=== PATIENT | female | born 1995 | race Hispanic/Latino ===

== ENCOUNTER 2020-04-13 01:12 | Emergency (ER) | payer OTHER, SELFPAY ==
[2020-04-13 01:11] VITALS: BP 136/90; PULSE 88; RESP 24; TEMP 36.3; O2SAT 100
[2020-04-13 01:35] VITALS: RESP 18
--- NOTE | 2020-04-13 01:38 | PC.NURSE ---
pt brought in by ems,was found at [place] [facility], pt states she has had etoh tonight and would not say amount or alcohol consumed. pt states she had to go to bathroom and was escorted by luz sanchez and RN. Luz went into restroom with pt and closed door. pt then came out of restroom and proceeded to go towards nurses station,pt then threw herself against wall. pt was then asked to turn around ang go towards room, pt the reached up and grabbed RN's arm and dug her fingernails into arm.leaving scratch mitchell and nail imprints. pt then stated she knew Rn and his and that they all knew they were assholes . pts boyfriend showed up at this time and pt started crying.
--- NOTE | 2020-04-13 01:52 | ED.GENADULT ---
HPI - General Adult General Chief complaint: Alcohol Stated complaint: etoh Time Seen by Provider: 04/13/20 01:17 History of Present Illness HPI narrative: Patient 24-year-old female who presents emerged department with chief complaint of alcohol intoxication. Patient reports that she was drinking tonight and ended up at the [place] [employer]. Patient reports that EMS was called after she had been nauseated patient was transported to our facility. The patient denies suicidal or homicidal ideation denies any injury is able to ambulate with an unsteady gait but is protecting her airway patient's boyfriend has arrived at the hospital and is able to take custody of her the patient request to go home with her boyfriend and feels comfortable going home with him. Related Data Home Medications Medication Instructions Recorded Confirmed levonorgestrel 1 device I-UTERINE ONCE 10/03/19 10/09/19 Allergies Allergy/AdvReac Type Severity Reaction Status Date / Time Penicillins Allergy Mild Rash Verified 10/03/19 15:37 Review of Systems Review of Systems: Narrative: A 10 system review of systems was completed on the patient and is negative except for what is stated in the HPI. Nursing and ancillary documentation was reviewed. [facility] [place] Social History Social History Smoking status: Never smoker Second hand tobacco smoke exposure: No Alcohol intake: current Drinks per week: 3 Substance use: never Comments Patient denies significant past medical history Social history the patient works at [employer] and denies illicit drug use reports to occasional alcohol use Exam Narrative: Exam Narrative: GENERAL: Well-appearing, well-nourished, and in no acute distress. HEAD: Normocephalic, atraumatic. EYES: PERRLA and EOMI. ENT: Nares clear, no rhinorrhea or epistaxis. Mucous membranes moist. NECK: Supple. CHEST: Clear to auscultation. No respiratory distress. HEART: Regular rate and rhythm. No murmur heard. Normal peripheral pulses. ABDOMEN: Soft, nontender, nondistended, normal active bowel sounds. EXTREMITIES: Normal range of motion. No edema. SKIN: Warm, dry, no rash. NEURO: No focal deficits. Alert and oriented x3. Patient is obviously intoxicated PSYCH: Normal mood and affect. Course Course Emergency Course: Patient is currently protecting her airway able to speak coherently and shows no signs of suicidal or homicidal ideation. Patient's boyfriend is able to take custody of her and is sure safe transport home and will be able to observe the patient. Vital Signs Vital signs: Vital Signs Temperature 36.3 C L 04/13/20 01:11 Pulse Rate 88 04/13/20 01:11 Respiratory Rate 24 H 04/13/20 01:11 Blood Pressure 136/90 04/13/20 01:11 Pulse Oximetry 100 04/13/20 01:11 Temperature 36.3 C L 04/13/20 01:11 Pulse Rate 88 04/13/20 01:11 Respiratory Rate 18 04/13/20 01:35 Blood Pressure 136/90 04/13/20 01:11 Pulse Oximetry 100 04/13/20 01:11 Medical Decision Making Vital Signs Vital Signs: Vital Signs Temperature 36.3 C L 04/13/20 01:11 Pulse Rate 88 04/13/20 01:11 Respiratory Rate 24 H 04/13/20 01:11 Blood Pressure 136/90 04/13/20 01:11 Pulse Oximetry 100 04/13/20 01:11 Temperature 36.3 C L 04/13/20 01:11 Pulse Rate 88 04/13/20 01:11 Respiratory Rate 18 04/13/20 01:35 Blood Pressure 136/90 04/13/20 01:11 Pulse Oximetry 100 04/13/20 01:11 Discharge Plan Discharge Clinical Impression: Alcoholic intoxication Qualifiers: Complication of substance-induced condition: uncomplicated Qualified Code(s): F10.920 - Alcohol use, unspecified with intoxication, uncomplicated Patient Disposition: Home, Self-Care Condition: Stable Instructions: Antibiotic Form, Abuse of Alcohol (ED) Prescriptions: No Action Kyleena 17.5 mcg/24 hrs (5 yrs) 19.5 mg intrauterine device
== END 2020-04-13 02:10 | disposition home or self-care (01) ==
LOC: ANHED 02:01
PROVIDERS: Emergency Provider Emergency Medicine
DX: F10.920 Alcohol use, unspecified with intoxication, uncomplicated (principal)
CPT/HCPCS: 99281